=== PATIENT | male | born 1945 | race Caucasian/White ===

== ENCOUNTER 2016-12-21 07:02 | Emergency (ER) | payer MEDICARE, BC ==
[2016-12-21 07:25] LABS: #Eosinphils 0.2 thou/uL (0.0-0.7); #Lymphocytes 0.9 thou/uL (1.20-3.40); #Monocytes 0.5 thou/uL (0.11-0.59); #Neutrophils 4.2 thou/uL (1.40-6.50); %Basophils 0.8 % (0.0-1.0); %Eosinophils 2.9 % (0.0-10.0); %Monocytes 8.1 % (0.0-10.0); %Neutrophils 73.2 % (42.0-75.0); Hemoglobin 13.5 g/dL (14.0-18.0); Mean Corpuscular HGB CONC 34.5 g/dL (32.0-36.0); Mean Corpuscular Hemoglobin 33.4 pg (27.0-31.0); Mean Corpuscular Volume 96.8 fl (80.0-94.0); Mean Platelet Volume 7.4 fL (7.4-10.4); Platelet Count 137 thou/uL (130-400); RBC Distribution Width 11.9 % (11.5-14.5); Red Blood Cell (RBC) Count 4.05 mill/uL (4.70-6.10); White Blood Cell (WBC) Count 5.8 thou/uL (4.8-10.8)
[2016-12-21] MEDS ORDERED: Fentanyl 100 MCG/2 ML VIAL ONE (07:27)
[2016-12-21 07:39] LABS: ALT (SGPT) 23 U/L (8-55); AST (SGOT) 20 U/L (5-34); Alkaline Phosphatase 88 U/L (40-150); Anion Gap 11 mmol/L (10-20); BUN (Urea Nitrogen) 18 mg/dL (8.4-25.7); Bilirubin, Total 0.7 mg/dL (0.2-1.2); Calc. Creatinine Clearance 0 mL/min (70-130); Carbon Dioxide 23 mmol/L (23-31); Chloride 109 mmol/L (98-107); Estimated GFR-MDRD 87; Globulin 2.9 g/dL (2.4-3.5); Glucose 108 mg/dL (80-115); Potassium 4.2 mmol/L (3.5-5.1); Protein, Total 6.9 g/dL (5.8-8.1); Sodium 139 mmol/L (136-145)
--- NOTE | 2016-12-21 23:24 | CT ---
PRELIMINARY REPORT/[facility]/EMERGENCY AFTER-HOURS PROCEDURE: EXAM: CT Abdomen and Pelvis Without Intravenous Contrast EXAM DATE/TIME: 12/21/2016 7:33 AM CLINICAL HISTORY: 71 years old, male; Pain; Abdominal pain; Localized; Left lower quadrant (llq); Patient HX: Llq abd. Pain TECHNIQUE: Axial computed tomography images of the abdomen and pelvis without intravenous contrast. All CT scans at this facility use one or more dose reduction techniques, viz.: automated exposure control; ma/kV adjustment per patient size (including targeted exams where dose is matched to indication; i.e . head); or iterative reconstruction technique. Coronal and sagittal reformatted images were created and reviewed. COMPARISON: No relevant prior studies available. FINDINGS: Lower thorax: No acute findings. ABDOMEN: Liver: Mild nodularity of the liver is present. Correlate regarding risk factors for hepatocellular disease. Mildly prominent spleen. Gallbladder and bile ducts: Unremarkable. Pancreas: Unremarkable. Spleen: See above. Adrenals: Unremarkable. No mass. Kidneys and ureters: Dilatation of the left renal pelvis and ureter to the level of the sacral ala secondary to a calcification measuring approximately 3 mm. 6 mm calcification lower pole right kidney 5 mm calcification upper pole left kidney Stomach and bowel: -Large amount of stool throughout the large bowel. Appendix: -The appendix is normal. PELVIS: Bladder: Unremarkable. No stones. Reproductive: normal. No mass ABDOMEN and PELVIS: Intraperitoneal space: Unremarkable. No free air. No significant fluid collection. Bones/joints: Degenerative changes are present within the spine. No acute fracture. No dislocation. Soft tissues: Unremarkable. Vasculature: Unremarkable. No abdominal aortic aneurysm. Lymph nodes: Unremarkable. No enlarged lymph nodes. Other findings: No acute inflammatory process. No obstruction. IMPRESSION: 1. Dilatation of the left renal pelvis and ureter to the level of the sacral ala secondary to a calc ification measuring approximately 3 mm. 2. -Large amount of stool throughout the large bowel. 3. -The appendix is normal. 4. Mild nodularity of the liver is present. Correlate regarding risk factors for hepatocellular dise ase. Mildly prominent spleen. 5. No acute inflammatory process. No obstruction. Thank you for allowing us to participate in the care of your patient. Dictated and Authenticated by: Juan Luis Morrison MD 12/21/2016 8:03 AM Central Time ([place] \T\ [place]) FINAL REPORT CT ABDOMEN AND PELVIS WITHOUT CONTRAST: 12/21/[address] of the abdomen and pelvis was performed for evaluation of left sided pain. Axial slices were acquired after giving IV contrast. Oral contrast was deferred by request. Coronal and sagittal reconstructions were done afterwards. The lung bases are clear. The liver, spleen, and pancreas showed no acute findings within the limita tions of a noncontrast study. No lesions of the adrenal glands were seen. No stones were seen in the gallbladder. The aorta is normal in caliber. Both kidneys show renal calculi. There is a small 3 mm calculus in the mid left ureter at about the L4-L5 level that is causing mild hydronephrosis. The bowel is nondistended but there is abundant fecal material in the colon. No inflammatory changes are seen around bowel. The appendix appears normal. No free air or free fluid was seen. CT of the pelvis shows no pelvic masses, fluid collections, or inflammatory changes. There are exten sive degenerative changes in the patient's lumbar spine. Disc space narrowing is present at L2-L3. A degenerated disc is seen at L4-L5 and there is mild anterolisthesis of L4 on L5 due to significant facet arthritis. IMPRESSION: 1. 3 mm left ureteral calculus at the L4-L5 level causing mild left hydronephrosis. 2. Small bilateral renal calculi. 3. 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 Report in agreement with preliminary reading by Yanci. POS: HOME
== END 2016-12-21 08:37 | disposition home or self-care (01) ==
LOC: BURERS 07:02
DX: N13.2 Hydronephrosis with renal and ureteral calculous obstruction (principal)
CPT/HCPCS: 36415; 74176; 80053; 85025; 96361; 96374; J3010

== ENCOUNTER 2017-09-23 14:43 | Emergency (ER) | payer MEDICARE, BC | END 2017-09-23 15:25 | disposition home or self-care (01) | LOC: BURERS 14:43 | DX: L25.9 Unspecified contact dermatitis, unspecified cause (principal); Z87.442 Personal history of urinary calculi | CPT/HCPCS: 99282 ==

== ENCOUNTER 2020-10-09 20:04 | Emergency (ER) | payer MEDICARE, BC ==
[2020-10-09] MEDS ORDERED: Ketorolac Tromethamine 30 MG/ML VIAL ONE ×2 (20:32→20:33)
[2020-10-09] MEDS ORDERED: Dicyclomine 20 MG TAB ONE (20:32)
[2020-10-09 20:36] LABS: Bilirubin Negative (Negative); Blood, Urine Moderate (Negative); Clarity Clear (Clear); Glucose, Urine (Dipstick) Negative (Negative); Ketone, Urine Negative (Negative); Leukocyte Negative (Negative); Nitrite Negative (Negative); Protein, Urine (Dipstick) Negative (Neg-Trace); Urobilinogen 0.2 mg/dL (Less than 2)
[2020-10-09 20:47] LABS: Bacteria/HPF None Seen HPF (None Seen); Squamous Epithelial None Seen HPF (0-3); WBC/HPF 0-3 HPF (0-3)
== END 2020-10-09 21:31 | disposition home or self-care (01) ==
LOC: BURERS 20:04
DX: N13.2 Hydronephrosis with renal and ureteral calculous obstruction (principal)
CPT/HCPCS: 74176; 81003; 81015; 96372; J1885

== ENCOUNTER 2020-10-11 01:15 | Emergency (ER) | payer MEDICARE, BC ==
[2020-10-11] MEDS ORDERED: Morphine 4 MG/ML VIAL ONE ×2 (01:33→01:49)
[2020-10-11] MEDS ORDERED: Ondansetron PF 4 MG/2 ML Vial ONE (01:33)
[2020-10-11 01:44] LABS: #Basophils 0.1 thou/uL (0.0-0.2); #Eosinphils 0.1 thou/uL (0.0-0.7); #Lymphocytes 0.8 thou/uL (1.20-3.40); #Monocytes 1.1 thou/uL (0.11-0.59); #Neutrophils 8.4 thou/uL (1.40-6.50); %Basophils 1.1 % (0.0-1.0); %Eosinophils 1.3 % (0.0-10.0); %Lymphocytes 7.5 % (21.0-51.0); %Monocytes 10.7 % (0.0-10.0); %Neutrophils 79.5 % (42.0-75.0); Hemoglobin 12.4 g/dL (14.0-18.0); Mean Corpuscular HGB CONC 33.8 g/dL (32.0-36.0); Mean Corpuscular Hemoglobin 33.2 pg (27.0-31.0); Mean Corpuscular Volume 98.1 fL (78.0-98.0); Mean Platelet Volume 8.5 fL (7.4-10.4); Platelet Count 113 thou/uL (130-400); RBC Distribution Width 12.6 % (11.5-14.5); Red Blood Cell (RBC) Count 3.74 mill/uL (4.70-6.10); White Blood Cell (WBC) Count 10.6 thou/uL (4.8-10.8)
[2020-10-11 01:56] LABS: Anion Gap 15 mmol/L (10-20); BUN (Urea Nitrogen) 22 mg/dL (8.4-25.7); Calc. Creatinine Clearance 0 mL/min (70-130); Calcium 9.2 mg/dL (7.8-10.44); Carbon Dioxide 23 mmol/L (23-31); Chloride 100 mmol/L (98-107); Glucose 116 mg/dL (83-110); Potassium 4.6 mmol/L (3.5-5.1); Sodium 133 mmol/L (136-145)
[2020-10-11 02:01] LABS: Platelet Morphology Comment Appears Decreased; RBC Morphology Normal
[2020-10-11] MEDS ORDERED: Fentanyl 100 MCG/2 ML VIAL ONE ×4 (02:07→05:09)
== END 2020-10-11 05:43 | disposition short-term general hospital (02) ==
LOC: BURERS 01:15
DX: N23 Unspecified renal colic (principal); Z79.899 Other long term (current) drug therapy
CPT/HCPCS: 80048; 85025; 96374; 96375; 96376; J2270; J2405; J3010

== ENCOUNTER 2020-10-21 12:38 | Emergency (ER) | payer MEDICARE, OTHER ==
[2020-10-21] MEDS ORDERED: Morphine 4 MG/ML VIAL ONE (12:48)
[2020-10-21] MEDS ORDERED: Ondansetron PF 4 MG/2 ML Vial ONE (12:48)
[2020-10-21] MEDS ORDERED: Ondansetron ODT 4 MG TAB ONE (12:49)
[2020-10-21 13:17] LABS: ALT (SGPT) 23 U/L (8-55); AST (SGOT) 17 U/L (5-34); Albumin 3.7 g/dL (3.4-4.8); Alkaline Phosphatase 99 U/L (40-110); Anion Gap 13 mmol/L (10-20); BUN (Urea Nitrogen) 19 mg/dL (8.4-25.7); Bilirubin, Total 0.3 mg/dL (0.2-1.2); CK (CPK) 114 U/L (30-200); Calc. Creatinine Clearance 0 mL/min (70-130); Calcium 8.5 mg/dL (7.8-10.44); Carbon Dioxide 24 mmol/L (23-31); Chloride 105 mmol/L (98-107); Glucose 100 mg/dL (83-110); Potassium 3.8 mmol/L (3.5-5.1); Protein, Total 6.7 g/dL (5.8-8.1); Sodium 138 mmol/L (136-145)
[2020-10-21] MEDS ORDERED: Aspirin Chewable 81 MG TAB ONE ×2 (13:17→13:19)
[2020-10-21 13:38] LABS: Mean Corpuscular HGB CONC 33.3 g/dL (32.0-36.0); Mean Corpuscular Hemoglobin 32.7 pg (27.0-31.0); Mean Corpuscular Volume 98.3 fL (78.0-98.0); Mean Platelet Volume 7.4 fL (7.4-10.4); Platelet Count 168 thou/uL (130-400); RBC Distribution Width 12.6 % (11.5-14.5); Red Blood Cell (RBC) Count 3.67 mill/uL (4.70-6.10); White Blood Cell (WBC) Count 8.7 thou/uL (4.8-10.8)
[2020-10-21 13:58] LABS: Band 2 % (5-11); Eosinophils 3 % (0-10); Lymphocytes 11 % (21-51); MDiff Complete? YES; Monocytes 10 % (0-10); Neutrophil 71 % (42-75); Reactive Lymphocytes 3 % (0-10)
== END 2020-10-21 13:38 | disposition home or self-care (01) ==
LOC: BURERS 12:38
DX: S57.81XA Crushing injury of right forearm, initial encounter (principal); T79.A0XA Compartment syndrome, unspecified, initial encounter; S50.01XA Contusion of right elbow, initial encounter; W23.0XXA Caught, crushed, jammed, or pinched between moving objects, initial encounter
CPT/HCPCS: 36415; 80053; 82550; 85007; 85027; 96372; J2270; J2405; Q0162

== ENCOUNTER 2022-07-02 23:10 | Emergency (ER) | payer MEDICARE, OTHER ==
[2022-07-02] MEDS ORDERED: Ipratropium/Albuterol 3 ML NEB ONE ×2 (23:24→23:39)
[2022-07-02] MEDS ORDERED: Dexamethasone 10 MG/ML VIAL ONE (23:40)
== END 2022-07-03 00:10 | disposition home or self-care (01) ==
LOC: BURERS 23:10
DX: J06.9 Acute upper respiratory infection, unspecified (principal)
CPT/HCPCS: 71045; 96372; J1100; J7620

== ENCOUNTER 2024-01-23 09:28 | Outpatient (CLI) | payer MEDICARE, OTHER | END 2024-01-23 09:29 | disposition home or self-care (01) | LOC: BURRAD 09:28 | PROVIDERS: ATTEND Urology | DX: N20.0 Calculus of kidney (principal); N40.1 Benign prostatic hyperplasia with lower urinary tract symptoms; R35.0 Frequency of micturition | CPT/HCPCS: 74018 ==